=== PATIENT | female | born 1960 | race Caucasian/White ===

== ENCOUNTER 2019-12-21 16:38 | Outpatient (CLI) | payer BC, SELFPAY ==
--- NOTE | ~2019-12-21 | CT_ITS ---
EXAMINATION: CT cervical spine wo con DATE: 12/21/2019 17:08 INDICATION: Sclerotic lesion at T2 noted on 11/18/2018 CT cervical spine TECHNIQUE: Computed tomography (CT) of the cervical spine was performed without intravenous contrast. Automated exposure control and iterative reconstruction technique were employed. Exam dose: 549.80 mGy-cm total exam DLP. COMPARISON: 11/18/2018 CT cervical spine FINDINGS: There is no significant interval change in a sclerotic lesion of the T2 vertebral body, parker suring approximately 8 mm maximal dimension, since 11/18/2018. This is statistically most likely a bon e island. This can be confirmed by bone scan if clinically desired. There is reversal cervical curvature which may be due to muscle spasm and/or positioning. No fracture or dislocation or locked facet. No prevertebral soft tissue swelling. There is moderate degenerative disease at C5-6 and moderately severe degenerative disc disease at C6- 7 with prominent posterior spurring noted at C6-7. There is uncovertebral joint spurring at C5-6 and C6-7. There is mild degenerative spurring of the ap ophyseal joints of the lumbar spine. IMPRESSION: Bursal cervical curvature, which may be due to muscle spasm and/or positioning Degenerative changes, particularly at C5-6 and C6-7 Stable sclerotic lesion of T2, statistically most likely a bone island, unchanged since 11/18/2018 Reviewed, dictated and finalized at [facility]. Reviewed, dictated and finalized at [facility]. IMPRESSION: Bursal cervical curvature, which may be due to muscle spasm and/or positioning Degenerative changes, particularly at C5-6 and C6-7 Stable sclerotic lesion of T2, statistically most likely a bone island, unchang ed since 11/18/2018
--- NOTE | ~2019-12-21 | CT_ITS ---
EXAMINATION: CT brain wo con DATE: 12/21/2019 17:08 INDICATION: Meningioma. Bone island. TECHNIQUE: Computed tomography (CT) of the head was performed without intravenous contrast. The mA wa s adjusted according to patient size. Iterative reconstruction technique was employed. Exam dose: 60 5.33 mGy-cm total exam DLP. COMPARISON: 11/18/2018 CT brain FINDINGS: There is an approximately 10 mm calcified extra-axial mass high over the left frontal conve xity, consistent with calcified meningioma, stable since 11/18/2018. There are chronic benign calcific ations adjacent to the falx. No intracranial mass lesion or hemorrhage or cerebrovascular accident is evident. No midline shift or mass effect. Normal ventricular size. Cerebral atherosclerosis. There is nonspecific diminished attenuation of the cerebral white matter, l ikely due to chronic small vessel ischemic changes. No subdural or epidural hematoma. Mastoid air cells and included paranasal sinuses are unremarkable. No fracture or bone destruction of the cranial vault. IMPRESSION: No acute intracranial finding Cerebral atherosclerosis and chronic small vessel ischemic changes of the cerebral white matter No significant change of approximately 10 mm calcified meningioma, left frontal area Reviewed, dictated and finalized at [facility]. Reviewed, dictated and finalized at [facility]. IMPRESSION: No acute intracranial finding Cerebral atherosclerosis and chronic small vessel ischemic changes of the cereb ral white matter No significant change of approximately 10 mm calcified meningioma, left frontal area
== END 2019-12-21 16:39 | disposition home or self-care (01) ==
LOC: ANHIMG 16:40
PROVIDERS: PCP Family Medicine; Visit Provider Family Medicine
DX: D32.9 Benign neoplasm of meninges, unspecified (principal); I67.2 Cerebral atherosclerosis
CPT/HCPCS: 70450; 72125

== ENCOUNTER 2023-06-18 12:45 | Outpatient (CLI) | payer BC, SELFPAY ==
--- NOTE | 2023-06-18 12:53 | ECHO_ITS ---
Patient Info Name: Clarissa Garza Age: 63 years : 1960 Gender: Female Ht: 66 in Wt: 337 lbs BSA: 2.76 m2 HR: 78 bpm BP: 129 / 83 mmHg Technical Quality: Poor Exam Date: 06/18/2023 1:20 PM Exam Location: [facility] Patient Status: Outpatient Admit Date: 06/18/2023 Staff Ordering Physician: Yasmin Bueno PA-C Debarker Operator: Gilda Shelby RCS Attending Provider: Yasmin Bueno PA-C Exam Type: CA echo dop color flow w con Study Info Indications - cardiac murmur Complete two-dimensional, color flow and Doppler transthoracic echocardiogram is performed with contrast to opacify the left ventricle and to improve the deliniation of the left ventricle endocardial borders. Contrast/Agitated Saline Contrast/Ag. Saline: Definity Amount: 2.00 ml Administered By: Gilda Shelby Existing IV Access: Yes New IV Access: Left Site Condition: IV removed Reason for Poor Study: patient body habitus Summary 1. Technically suboptimal study due to poor sonographic images. 2. Left ventricular chamber dimension is normal. 3. Left ventricular systolic function is normal, estimated at 60-65%. 4. The left ventricular diastolic function is grade I diastolic dysfunction. 5. E/e' 7 is not elevated. 6. There is mild aortic valve sclerosis. 7. The mitral valve has mildly calcified annulus. 8. There is trace tricuspid valve regurgitation. 9. No pulmonary hypertension, estimated pulmonary arterial systolic pressure is 27 mmHg. Left Ventricle E/e' 7 is not elevated. Technically suboptimal study due to poor sonographic images. Left ventricular chamber dimension is normal. Left ventricular systolic function is normal, estimated at 60-65%. The left ventricular diastolic function is grade I diastolic dysfunction. Right Ventricle Right ventricular chamber dimension is normal. Right ventricular systolic function is normal. Left Atria Left atrial chamber dimension is normal. Right Atria Right atrial chamber dimension is normal. Aortic Valve The aortic valve is trileaflet. There is mild aortic valve sclerosis. There is no aortic valve stenosis. There is no aortic valve regurgitation. Pulmonic Valve There is no pulmonic regurgitation. Mitral Valve The mitral valve has mildly calcified annulus. There is no mitral valve stenosis. There is no mitral valve regurgitation. Tricuspid Valve There is trace tricuspid valve regurgitation. No pulmonary hypertension, estimated pulmonary arterial systolic pressure is 27 mmHg. Pericardium/Pleural There is no pericardial effusion. Inferior Vena Cava Normal inferior vena cava with >50% collapse upon inspiration consistent with normal right atrial pressure, 5 mmHg. Aorta The aortic root size at the sinus of Valsalva is normal. Left Ventricular Outflow Tract Name Value Normal LVOT 2D LVOT Diameter 2.11 cm LVOT Doppler LVOT Peak Gradient 5 mmHg LVOT Mean Gradient 3 mmHg LVOT VTI 24.16 cm LVOT VTI/AV VTI Ratio 0.46 LVOT Stroke Volume 84.78 ml
[2023-06-18] MEDS: PERFLUTREN LIPID MICROSPHERES 1.5 ML VIAL DILUTED TO 10 ML TOTAL VOLUME IV PUSH (14:15)
--- NOTE | 2023-06-19 09:57 | IVDEFINITY ---
Prior to administration of IV Definity the patient was educated on the risks and benefits of the imaging enhancing agent including potential adverse side effects. The patient verbalized understanding. Allergies were verified. No exclusion criteria were identified and at least one of the following inclusion criteria were met: 1) physician request, 2) patient technically difficult to image (per the [place] [employer] guidelines of two or more segments not discernable within the apical view), or 3) questionable left ventricular function. ?
== END 2023-06-18 12:46 | disposition home or self-care (01) ==
PROVIDERS: PCP Family Medicine; Visit Provider Physician Assistant
DX: R01.1 Cardiac murmur, unspecified (principal)
CPT/HCPCS: C8929; Q9957